=== PATIENT | female | born 1965 | race Caucasian/White ===

== ENCOUNTER → 2021-12-04 00:18 | Outpatient (CLI) | payer OTHER, SELFPAY ==
[2021-12-04 13:24] LABS: SARS-CoV-2 RNA PCR Negative
== END ==
PROVIDERS: PCP Physician Assistant; Visit Provider Internal Medicine Gastroenterology
DX: Z01.812 Encounter for preprocedural laboratory examination (principal); Z20.822 Contact with and (suspected) exposure to COVID-19
CPT/HCPCS: C9803; U0003; U0005

== ENCOUNTER 2021-12-08 00:29 | Day surgery (SDC) | payer OTHER, SELFPAY ==
[2021-11-30 13:06] VITALS: BMI 36.6
[2021-12-08 09:29] VITALS: BP 171/79; PULSE 69; RESP 20; TEMP 36.4; O2SAT 99
[2021-12-08] MEDS: LACTATED RINGERS 1,000 ML 150 ML IV CONT (09:38)
--- NOTE | 2021-12-08 09:38 | WPDANESEPPF ---
Anes - Initial Pre Proc Eval Procedure: Operation Date: 12/08/21 10:30 Proposed Procedures p Esophagogastroduodenoscopy - Clive Carlos MD Date/Time: 12/08/21 09:38 Surgeon: Clive Carlos MD Pre Op Diagnosis: dysphagia Patient Data Age: 56 Gender: F Height: 1.65 m Weight: 108.7 kg Last Vital Signs Temp 36.4 C 12/08/21 09:29 Pulse 69 12/08/21 09:29 Resp 20 12/08/21 09:29 BP 171/79 H 12/08/21 09:29 Pulse Ox 99 12/08/21 09:29 Allergies Allergy/AdvReac Type Severity Reaction Status Date / Time Penicillins Allergy Mild Rash Verified 12/08/21 09:40 Home Medications Medication Instructions Recorded Confirmed Type levothyroxine 88 mcg PO DAILY 11/30/21 11/30/21 History metoprolol succinate 25 mg PO DAILY 11/30/21 11/30/21 History rosuvastatin 5 mg PO DAILY 11/30/21 11/30/21 History valsartan-hydrochlorothiazide 320 tablet PO DAILY 11/30/21 11/30/21 History Patient hx anesthesia problems: none Family hx anesthesia problems: none Results Review: All pre-operative results and documents have been reviewed as part of the pre-operative evaluation. [facility] Past Medical History Medical History (Updated 12/08/21 @ 09:39 by Fausto Holland MD) GERD (gastroesophageal reflux disease) HTN (hypertension) Hyperlipidemia Hypothyroidism Morbid obesity Social History Social History Smoking status: Never smoker Alcohol intake: current Drinks per week: 1 Substance use: never Substance use type: does not use Living arrangements: with friend(s) Spiritual care concerns: No Anes - Eval Final PreProcedure Day of Procedure 12/08/21 09:38 Patient weight: morbidly obese Heart: regular rate and rhythm Lungs: clear to auscultation Airway: Mallampati scale class II Neurological: alert and oriented Last oral intake: >/= 8 hours ASA classification: III Emergent: no Anesthetic plan: proceed Anesthesia type and monitoring: general GIVS and standard monitoring Results Review: All pre-operative results and documents have been reviewed as part of the pre-operative evaluation. Informed Consent: The patient's anesthetic plan and its attendant risks and benefits were discussed with the patient/family/POA. Questions were solicited and answers provided to the satisfaction of the patient/family/POA.
--- NOTE | 2021-12-08 10:06 | PM.HPGS ---
History of Present Illness History of Present Illness Consent: Risks, benefits, and alternatives have been discussed and questions answered. Patient agrees to proceed with procedure. Chief complaint: dysphagia Narrative: Jodi Barakat is a 56 year old female with dysphagia, never had egd Review of Systems Constitutional: Constitutional: Denies headache(s) and Denies weakness Eyes: Eyes: Denies blurry vision ENT: Reports Normal hearing present, Denies headache(s) and Denies neck pain Cardiovascular: Cardiovascular: Denies chest pain and Denies dyspnea Respiratory: Respiratory: Denies dyspnea Gastrointestinal: Gastrointestinal: Reports no additional gastrointestinal complaints Genitourinary: Genitourinary: Denies dysuria Musculoskeletal: Musculoskeletal: Denies neck pain Integumentary/Breasts: Skin/Breast: Denies dry skin Neurologic: Reports Normal hearing present, Denies headache(s) and Denies weakness Psychiatric: Psychiatric: Denies anxiety Endocrine: Endocrine: Denies change in body appearance Hematologic/Lymphatic: Hematologic/Lymphatic: Denies easy bleeding Allergic/Immunologic: Allergic/Immunologic: Denies urticaria [facility] Past Medical History Medical History (Updated 12/08/21 @ 10:06 by Clive Carlos MD) Dysphagia GERD (gastroesophageal reflux disease) HTN (hypertension) Hyperlipidemia Hypothyroidism Morbid obesity Social History Social History Smoking status: Never smoker Alcohol intake: current Drinks per week: 1 Substance use: never Substance use type: does not use Living arrangements: with friend(s) Spiritual care concerns: No Meds Home Medications and Allergies Home Medications Medication Instructions Recorded Confirmed Type levothyroxine 88 mcg PO DAILY 11/30/21 11/30/21 History metoprolol succinate 25 mg PO DAILY 11/30/21 11/30/21 History rosuvastatin 5 mg PO DAILY 11/30/21 11/30/21 History valsartan-hydrochlorothiazide 320 tablet PO DAILY 11/30/21 11/30/21 History Allergies Allergy/AdvReac Type Severity Reaction Status Date / Time Penicillins Allergy Mild Rash Verified 12/08/21 09:40 Vital Signs Vital Signs - 24 hr 12/08/21 09:29 Temperature 97.6 F Pulse Rate 69 Respiratory Rate 20 Blood Pressure 171/79 H Pulse Oximetry 99 Exam Const: General: comfortable and no acute distress HENMT: General nose exam: Normal nares present Eyes: General: appearance normal, both eyes and all related structures Neck: Neck: no JVD Resp: Auscultation: clear to auscultation bilaterally Cardio: Rate: regular rate Rhythm: regular rhythm GI: Inspection: non-distended GI Palp: Yes Soft to palpation Skin: General skin exam: normal color Neuro: General: gait normal Speech: normal speech Extrem: General: normal to inspection Psych: Mental Status: mental status grossly normal Assessment and Plan Assessment and plan (1) Dysphagia: Code(s): R13.10 - Dysphagia, unspecified Status: Acute Assessment and Plan: egd with bx, dilation based on findings.
[2021-12-08 10:24] VITALS: BP 99/56; PULSE 71; RESP 26; O2SAT 95
[2021-12-08 10:34] VITALS: BP 105/57; PULSE 62; RESP 19; O2SAT 98
== END 2021-12-08 11:13 | disposition home or self-care (01) ==
PROVIDERS: PCP Physician Assistant; Visit Provider Internal Medicine Gastroenterology
PROC: 0DJ08ZZ Inspection of Upper Intestinal Tract, Via Natural or Artificial Opening Endoscopic (ICD-10-PCS; CPT 43235; principal; 2021-12-08 10:30)
DX: K22.2 Esophageal obstruction (principal); K21.00 Gastro-esophageal reflux disease with esophagitis, without bleeding; K44.9 Diaphragmatic hernia without obstruction or gangrene; K29.50 Unspecified chronic gastritis without bleeding; K22.10 Ulcer of esophagus without bleeding; I10 Essential (primary) hypertension; E78.5 Hyperlipidemia, unspecified; E03.9 Hypothyroidism, unspecified; E66.01 Morbid (severe) obesity due to excess calories; Z68.39 Body mass index [BMI] 39.0-39.9, adult
CPT/HCPCS: 43239; 43249; 88305; C1726; C9803; J2001; J2704; J7120; U0003; U0005

== ENCOUNTER 2022-04-08 01:11 | Day surgery (SDC) | payer OTHER, SELFPAY ==
[2022-03-29 14:38] VITALS: BMI 36.6
--- NOTE | 2022-04-07 15:33 | WPDANESEPPF ---
Anes - Initial Pre Proc Eval Procedure: Operation Date: 04/08/22 10:30 Proposed Procedures p Esophagogastroduodenoscopy - Clive Carlos MD <Amadou Garcia, DO - Last Filed: 04/07/22 15:35> Date/Time: 04/07/22 15:33 <Amadou Garcia, DO - Last Filed: 04/07/22 15:35> Surgeon: Clive Carlos MD <Amadou Garcia, DO - Last Filed: 04/07/22 15:35> Pre Op Diagnosis: gastritis, esophagitis <Amadou Garcia DO - Last Filed: 04/07/22 15:35> Patient Data Age: 57 Gender: F Height: 1.65 m Weight: 100 kg <Amadou Garcia DO - Last Filed: 04/07/22 15:35> Allergies Allergy/AdvReac Type Severity Reaction Status Date / Time Penicillins Allergy Mild Rash Verified 04/08/22 09:18 <Amadou Garcia DO - Last Filed: 04/07/22 15:35> Home Medications Medication Instructions Recorded Confirmed Type levothyroxine 88 mcg tablet 88 mcg PO DAILY 11/30/21 04/08/22 History metoprolol succinate 25 mg 25 mg PO DAILY 11/30/21 04/08/22 History tablet,extended release 24 hr rosuvastatin 5 mg tablet 5 mg PO DAILY 11/30/21 04/08/22 History valsartan 320 320 tablet PO DAILY 11/30/21 04/08/22 History mg-hydrochlorothiazide 25 mg tablet pantoprazole 40 mg tablet,delayed See Rx Instructions .Route 04/04/22 04/08/22 Rx release .COMPLEX #30 tabs <Amadou Garcia DO - Last Filed: 04/07/22 15:35> Patient hx anesthesia problems: none <Cassandra Snell CRNA - Last Filed: 04/08/22 09:59> Family hx anesthesia problems: none <Cassandra Snell CRNA - Last Filed: 04/08/22 09:59> Results Review: All pre-operative results and documents have been reviewed as part of the pre-operative evaluation. <Amadou Garcia DO - Last Filed: 04/07/22 15:35> [facility] Past Medical History Medical History: Medical History (Updated 04/08/22 @ 09:57 by Clive Carlos MD) Dysphagia GERD (gastroesophageal reflux disease) Hiatal hernia HTN (hypertension) Hyperlipidemia Hypothyroidism <Amadou Garcia DO - Last Filed: 04/07/22 15:35> Social History Social History: Social History Smoking status: Never smoker Alcohol intake: current Drinks per week: 1 Alcohol use details: very rare use, maybe once monthly Substance use: never Substance use type: does not use Living arrangements: with family Additional living arrangements comments: significant other x 20 years Spiritual care concerns: No <Amadou Garcia DO - Last Filed: 04/07/22 15:35> Anes - Eval Final PreProcedure Day of Procedure 04/07/22 15:33 <Amadou Garcia DO - Last Filed: 04/07/22 15:35> Patient weight: obese <Amadou Garcia DO - Last Filed: 04/07/22 15:35> Heart: regular rate and rhythm <Amadou Garcia DO - Last Filed: 04/07/22 15:35> Lungs: clear to auscultation <Amadou aGrcia DO - Last Filed: 04/07/22 15:35> Airway: Mallampati scale class II <Amadou Garcia DO - Last Filed: 04/07/22 15:35> Neurological: alert and oriented <Amadou Garcia DO - Last Filed: 04/07/22 15:35> Last oral intake: >/= 8 hours <mAadou Garcia DO - Last Filed: 04/07/22 15:35> ASA classification: III <Amadou Garcia DO - Last Filed: 04/07/22 15:35> Emergent: no <Amadou Garcia DO - Last Filed: 04/07/22 15:35> Anesthetic plan: proceed <Amadou Garcia DO - Last Filed: 04/07/22 15:35> Anesthesia type and monitoring: general GIVS and standard monitoring <Amadou Garcia DO - Last Filed: 04/07/22 15:35> Results Review: All pre-operative results and documents have been reviewed as part of the pre-operative evaluation. <Amadou Garcia DO - Last Filed: 04/07/22 15:35> Informed Consent: The patient's anes
[2022-04-08 09:19] VITALS: BP 152/92; PULSE 67; RESP 19; TEMP 36.3; O2SAT 100
[2022-04-08] MEDS: LACTATED RINGERS 1,000 ML 150 ML IV CONT (09:25)
--- NOTE | 2022-04-08 09:56 | PM.HPGS ---
History of Present Illness History of Present Illness Consent: Risks, benefits, and alternatives have been discussed and questions answered. Patient agrees to proceed with procedure. Chief complaint: gastritis, esophagitis Narrative: Jodi Barakat is a 57 year old female with reflux esophagitis and non-obstructive ring that was dilated up to 18mm doing much better now with pantoprazole daily, no more dysphagia. Review of Systems Constitutional: Constitutional: Denies headache(s) and Denies weakness Eyes: Eyes: Denies blurry vision ENT: Reports Normal hearing present, Denies headache(s) and Denies neck pain Cardiovascular: Cardiovascular: Denies chest pain and Denies dyspnea Respiratory: Respiratory: Denies dyspnea Gastrointestinal: Gastrointestinal: Reports no additional gastrointestinal complaints Genitourinary: Genitourinary: Denies dysuria Musculoskeletal: Musculoskeletal: Denies neck pain Integumentary/Breasts: Skin/Breast: Denies dry skin Neurologic: Reports Normal hearing present, Denies headache(s) and Denies weakness Psychiatric: Psychiatric: Denies anxiety Endocrine: Endocrine: Denies change in body appearance Hematologic/Lymphatic: Hematologic/Lymphatic: Denies easy bleeding Allergic/Immunologic: Allergic/Immunologic: Denies urticaria [facility] Past Medical History Medical History (Updated 04/08/22 @ 09:57 by Clive Carlos MD) Dysphagia GERD (gastroesophageal reflux disease) Hiatal hernia HTN (hypertension) Hyperlipidemia Hypothyroidism Social History Social History Smoking status: Never smoker Alcohol intake: current Drinks per week: 1 Alcohol use details: very rare use, maybe once monthly Substance use: never Substance use type: does not use Living arrangements: with family Additional living arrangements comments: significant other x 20 years Spiritual care concerns: No Meds Home Medications and Allergies Home Medications Medication Instructions Recorded Confirmed Type levothyroxine 88 mcg tablet 88 mcg PO DAILY 11/30/21 04/08/22 History metoprolol succinate 25 mg 25 mg PO DAILY 11/30/21 04/08/22 History tablet,extended release 24 hr rosuvastatin 5 mg tablet 5 mg PO DAILY 11/30/21 04/08/22 History valsartan 320 320 tablet PO DAILY 11/30/21 04/08/22 History mg-hydrochlorothiazide 25 mg tablet pantoprazole 40 mg tablet,delayed See Rx Instructions .Route 04/04/22 04/08/22 Rx release .COMPLEX #30 tabs Allergies Allergy/AdvReac Type Severity Reaction Status Date / Time Penicillins Allergy Mild Rash Verified 04/08/22 09:18 Vital Signs Vital Signs - 24 hr 04/08/22 09:19 Temperature 97.4 F L Pulse Rate 67 Respiratory Rate 19 Blood Pressure 152/92 H Pulse Oximetry 100 Oxygen Delivery Room Air Exam Const: General: comfortable and no acute distress HENMT: General nose exam: Normal nares present Eyes: General: appearance normal, both eyes and all related structures Neck: Neck: no JVD Resp: Auscultation: clear to auscultation bilaterally Cardio: Rate: regular rate Rhythm: regular rhythm GI: Inspection: non-distended GI Palp: Yes Soft to palpation Skin: General skin exam: normal color Neuro: General: gait normal Speech: normal speech Extrem: General: normal to inspection Psych: Mental Status: mental status grossly normal Assessment and Plan Assessment and plan (1) GERD (gastroesophageal reflux disease): Code(s): K21.9 - Gastro-esophageal reflux disease without esophagitis Status: Acute Assessment and Plan: erosive esophagitis doing much better with ppi, denies any more dysphagia egd to assess healing (2) Dysphagia: Code(s): R13.10 - Dysphagia, unspecified Status: Acute
[2022-04-08 10:15] VITALS: BP 127/74; PULSE 64; RESP 20; O2SAT 100
[2022-04-08 10:25] VITALS: BP 131/81; PULSE 60; RESP 16; O2SAT 98
[2022-04-08 10:35] VITALS: BP 159/82; PULSE 64; RESP 20; O2SAT 97
== END 2022-04-08 10:40 | disposition home or self-care (01) ==
PROVIDERS: PCP Physician Assistant; Visit Provider Internal Medicine Gastroenterology
PROC: 0DJ08ZZ Inspection of Upper Intestinal Tract, Via Natural or Artificial Opening Endoscopic (ICD-10-PCS; CPT 43235; principal; 2022-04-08 10:30)
DX: K21.00 Gastro-esophageal reflux disease with esophagitis, without bleeding (principal); R13.10 Dysphagia, unspecified; K44.9 Diaphragmatic hernia without obstruction or gangrene; K29.70 Gastritis, unspecified, without bleeding; I10 Essential (primary) hypertension; E78.5 Hyperlipidemia, unspecified; E03.9 Hypothyroidism, unspecified
CPT/HCPCS: 43235; J2704; J7120

== ENCOUNTER 2025-05-01 02:55 | Day surgery (SDC) | payer OTHER, SELFPAY ==
[2025-04-16 12:28] VITALS: BMI 34.8
--- OUTSIDE RECORDS SUMMARY | 2025-05-01 02:58 | XMS_ITS | Continuity of Care Document ---
Author Organization [facility] Address [address] [facility] [place] [address] Phone Care Team Providers Care Lunchroom Mother Name Role Phone Mathew Hinojosa MD Unavailable Unavailable Allergies, Adverse Reactions, Alerts Substance Reaction Status Criticality penicillin G Active No Information Medications Medication Instructions Dosage Effective Dates (start - stop) Status Comments Synthroid 50 mcg tablet take 1 tablet by oral route every day 50 MCG - Active Diovan HCT 320 mg-25 mg tablet take 1 tablet by oral route every day 1.00 tablet - Active Procedures Procedure Date OFFICE/OUTPATIENT VISIT, EST PREV VISIT, EST, AGE 40-64 OFFICE/OUTPATIENT VISIT, EST OFFICE/OUTPATIENT VISIT, EST OFFICE/OUTPATIENT VISIT, EST PREV VISIT, EST, AGE 40-64 OFFICE/OUTPATIENT VISIT, EST PREV VISIT, EST, AGE 40-64 OFFICE/OUTPATIENT VISIT, EST OFFICE/OUTPATIENT VISIT, EST OFFICE/OUTPATIENT VISIT, EST OFFICE/OUTPATIENT VISIT, EST PREV VISIT, EST, AGE 40-64 OFFICE/OUTPATIENT VISIT, EST Advance Directives Directive Yes / No Effective Date File Name No Information Encounters Encounter Description Practice Location Reason(s) For Visit Diagnoses Date Provider Providers Copied on Encounter [facility], [address] [facility] [place], [id number], [place] tel:[phone] [facility] No Information 8 Ashish Carmona. [address], [place], [place], [address] , [place]. tel:[phone] OFFICE/OUTPA TIENT VISIT, EST [facility], [address], [place], [place], [address], [place] [phone] [facility] HLP (chief complaint) HTN (chief complaint) thyroid (chief complaint) HypothyroidismEssen tial (primary) hypertensionHyperli pidemia 8 Ashish Carmona. [address], [place], [place], [address] , [place]. tel:[phone] PREV VISIT, EST, AGE 40-64 [facility], [address], [place], [place], [address], [place] [phone] [facility] PHysical (chief complaint) Encounter for general adult medical exam w abnormal findingsHypothyroid ismEssential (primary) hypertensionHyperli pidemia 7 Ashish Carmona. [address], [place], [place], [address] , [place]. [phone] Referring Provider: Dena Taylor [address], [place], [place], [address]. tel:[phone] OFFICE/OUTPA TIENT VISIT, EST [facility], [address], [place], [place], [address], [place] [phone] [facility] Medicine Fatigue1 (chief complaint) HTN (chief complaint) hypothyroi dism (chief complaint) Essential (primary) hypertensionFatigue Hypothyroidism 7 Ashish Carmona. [address], [address], [place], [place], [address] , [place]. tel:[phone] Referring Provider: Dena Taylor [address], [place], [place], [address]. tel:[phone] OFFICE/OUTPA TIENT VISIT, EST [facility], [address], [place], [place], [address], [place] tel:[phone] [facility] HTN (chief complaint) HLP (chief complaint) thyroid (chief complaint) low D (chief complaint) Essential (primary) hypertensionHypothy roidismHyperlipidem iaFatigue 6 Ashish Toney [address], [place], [place], [address] , [place]. [phone] Referring Provider: Dena Taylor [address], [place], [place], [address]. tel:[phone] PREV VISIT, EST, AGE 40-64 [facility], [address], [place], [place], [address], [place] [phone] [facility] Medicine PHysical (chief complaint) Encounter for general adult medical exam w abnormal findingsEssential (primary) hypertensionAbnorma l weight gain 6 Ashish Toney [address], [place], [place], [address] , [place]. tel:[phone] Referring Provider: Dena Taylor [address], [place], [place], [address]. tel:[phone] PREV VISIT, EST, AGE 40-64 [facility], [address], [place], [place], [address], [place] [phone] [facility] Physical (chief complaint) ROUTINE MEDICAL EXAMDietary surveillance and counselingUnspecifi ed essential hypertensionSeborrh eic dermatitisBMI 35.0 to 35.9 5 Ashish Toney [address], [place], [place], [address] , [place]. [phone] Referring Provider: Dena Taylor [address], [place], [place], [address]. tel:[phone] OFFICE/OUTPA TIENT VISIT, EST [facility], [address], [place], [place], [address], [place] [phone] [facility] Medicine HTN (chief complaint) skin infection (chief complaint) Dietary surveillance and counselingHypertens ion, UnspecifiedCellulit is 4 Hinojosa Mathew. [address], [place], [place], [address] , [place]. tel:[phone] Referring Provider: Dena Taylor [address], [place], [place], [address]. tel:[phone] OFFICE/OUTPA TIENT VISIT, [facility], [address], [place], [place], [address], [place] [phone] [facility] HTN (chief complaint) insect bite (chief complaint) Hypertension, UnspecifiedInsect bite, nonvenomous of trunk, without mention of infectionCellulitis 4 Ashish Toney [address], [place], [place], [address] , [place]. tel:[phone] Referring Provider: Dena Taylor [address], [place], [place], [address]. tel:[phone] OFFICE/OUTPA TIENT VISIT, [facility], [address], [place], [place], [address], [place] tel:[phone] [facility] HTN (chief complaint) HLP (chief complaint) Vitamin D (chief complaint) Dietary surveillance and counselingConjuncti darrin hemorrhageOther and unspecified hyperlipidemiaHyper tension, UnspecifiedUnspecif ied vitamin d deficiency 4 Ashish Toney [address], [place], [place], [address] , [place]. tel:[phone] Referring Provider: Dena Taylor [address], [place], [place], [address]. tel:[phone] PREV VISIT, EST, AGE 40-64 [facility], [address], [place], [place], [address], [place] tel:[phone] [facility] Physical (chief complaint) Dietary surveillance and counselingRoutine Medical ExamHypertension, UnspecifiedConjunct ival hemorrhageRoutine Medical Exam 4 Ashish Toney [address], [place], [place], [address] , [place]. tel:[phone] Family History Family Member Type Diagnosis Age At Onset Brother Problem (finding) Hypertension Mother Problem (finding) Hypertension Father Problem (finding) Hypertension Father Problem (finding) Coronary artery disease Payers Payer name Insurance type Covered alliance party ID Authoriza tion(s) No Information Social History Type Description Quantity Date Captured Comments Sex Female Smoking Status No Information Chief Complaint And Reason For Visit No Information Plan Of Treatment Date Type Action Status Goal Pap/HPV testing. Due on due Goal Colonoscopy. Due on 018 due Goal Sigmoidoscopy. Due on due Goal Influenza vaccine. Due on due Goal Td vaccine. Due on 18 due Goal Depression screening. Due on due Goal Tdap. Due on due Goal FOBT. Due on due Goal Influenza vaccine. Due on due Goal FOBT. Due on due Goal Td vaccine. Due on 17 due Goal Pap/HPV testing. Due on due Goal Sigmoidoscopy. Due on due Goal Colonoscopy. Due on 017 due Goal Depression screening. Due on due Goal Tdap. Due on due Goal Pap/HPV testing. Due on due Goal Td vaccine. Due on 17 due Goal FOBT. Due on due Goal Depression screening. Due on due Goal Tdap. Due on due Goal Sigmoidoscopy. Due on due Goal Colonoscopy. Due on 017 due Goal Influenza vaccine. Due on due Goal Pap/HPV testing. Due on due Goal FOBT. Due on due Goal Colonoscopy. Due on 016 due Goal Depression screening. Due on due Goal Sigmoidoscopy. Due on due Goal Tdap. Due on due Goal Influenza vaccine. Due on due Goal Td vaccine. Due on 16 due Goal Depression screening. Due on due Goal FOBT. Due on due Goal Sigmoidoscopy. Due on due Goal Td vaccine. Due on 16 due Goal Colonoscopy. Due on 016 due Goal Tdap. Due on due Goal Influenza vaccine. Due on due Goal Pap/HPV testing. Due on due Goal Depression screening. Due on due Goal Pap/HPV testing. Due on due Goal Td vaccine. Due on 15 due Goal Tdap. Due on due Goal Mammogram. Due on 4 due Referral Ordered: US THYROID ordered Referral Ordered: Pulmonology (related to Fatigue) ordered Referral Ordered: Referrals: Pulmonology. Evaluate and treat ordered Referral Ordered: MAMMOGRAM, SCREENING ordered History Of Present Illness Encounter Date Complaint History Of Prese nt Illness thyroid Pt has low thyro id. Pt had thyroid ultrasound done which showed ria disease. Pt takes synthroid and her tsh is ok. pt denies any weight gain or fatigue HLP Pt has HLP. pt i s trying low fat and low carb diet HTN Pt has HTN. Pt r un out of ddiovan.hctz. her BP is high today. Pt denies any chest pain or headache PHysical PT needs annual physical. Pt has hypothyroidism. Pt is noncompliant. Pt stopped taking synthroid and also she has not done the thyroid ultrasound. Pt has HTN. pt takes diovan.hcz and her BP is still bordelrine high ,Pt denies any chest pian or headache. pt has HLP. Pt has not been diet and exercising. Pt denies any other complaints hypothyroidism Pt has not notic ed much difference with synthroid meds. HTN Pt has HTN. Pt t akes diovan.hctz and her bp is high today. Pt denies any headache. Pt states that her BP is around 140 at home two weeks ago Fatigue1 Pt has chronic f atigue and she feels sleepy all the time. Pt does work a lot of hours. Pt also snores at night. Pt has very interruppted sleep. Pt denies any chest pain or SOB. Pt is noncompliant with sleep study low D Pt has low D. thyroid Pt has low thyro id also. Pt feels fatigue. Pt had negative sleep study 5 years. Pt does snore. Pt feels fatigue in the morning HLP Pt has mildly hi gh cholesterol. Pt is no on any diet HTN Pt is on diovan/ HCTZ and her BP is stable. Pt denies any chest pain, hadache PHysical Pt needs annual physical. Pt takes losaratn.hctz and she stopped norvasc on her own due to ankle swelling. Pt states that her ankle no longer swells without norvasx. her BP is borderline. Pt also is noncompliant with lab work and mammogram. Pt otherwise feels fine. Pt denies any other complaints Physical Pt needs annual physical. Pt has HTN. Pt denies any chest pain or headache. Pt has not had BP checked for a while at home. Pt takes losartan/HCTZ and norvasc. Pt has gained sevearl pounds and feels overall bloated. Pt notices dry and flaky feeling around upper eye lid area and along hairline for 4 weeks. Pt notices mild itching. Pt denies any dandruff and alopecia. Pt states that sometimes upper eyelid turns red. Pt denies any other complaints Instructions Date Instruction Additional Infor mation Increase physical activity Relat ed to Hypothyroidism Weight management Related to Hyp othyroidism Prescribed Activity and Exercise Education Related to Dietary Surveillance and Counseling Prescribed Diet Educ ation/Lifestyle Education Regarding Diet Related to Dietary Surveillance and Counseling Weight management Related to Enc ounter for general adult medical exam w abnormal findings Increase physical activity Relat ed to Encounter for general adult medical exam w abnormal findings Prescribed Diet Educ ation/Lifestyle Education Regarding Diet Related to Dietary Surveillance and Counseling Prescribed Activity and Exercise Education Related to Dietary Surveillance and Counseling Prescribed Activity and Exercise Education Related to Dietary Surveillance and Counseling Prescribed Diet Educ ation/Lifestyle Education Regarding Diet Related to Dietary Surveillance and Counseling Prescribed Diet Educ ation/Lifestyle Education Regarding Diet Related to Dietary Surveillance and Counseling Prescribed Activity and Exercise Education Related to Dietary Surveillance and Counseling Prescribed Activity and Exercise Education Related to Dietary Surveillance and Counseling Prescribed Diet Educ ation/Lifestyle Education Regarding Diet Related to Dietary Surveillance and Counseling Prescribed Activity and Exercise Education Related to Dietary Surveillance and Counseling Prescribed Diet Educ ation/Lifestyle Education Regarding Diet Related to Dietary Surveillance and Counseling Dietary counseling Related to Di etary surveillance counseling Decrease caloric intake Related to Dietary surveillance counseling Dietary counseling Related to Di etary surveillance counseling Decrease caloric intake Related to Dietary surveillance counseling Decrease caloric intake Related to Dietary surveillance counseling Dietary counseling Related to Di etary surveillance counseling Assessments Type Assessment Date No Information
[2025-05-01 13:13] VITALS: BP 180/89; PULSE 65; RESP 18; TEMP 34.1; O2SAT 100
[2025-05-01] MEDS: LACTATED RINGERS 1,000 ML 150 ML IV CONT (13:20)
--- NOTE | 2025-05-01 13:51 | P.HP_ITS ---
H&P: HPI History of Present Illness Date/Time: 05/01/25 13:51 Chief Complaint: Positive Cologuard test Narrative: This is the patient's first colonoscopy. she recently had a Cologuard positive test. There are no GI symptoms and there is no family history of colorectal cancer. Review of Systems Review of Systems: All systems reviewed & are unremarkable except as noted in HPI and below PMFSH Past Medical History Medical History (Updated 05/01/25 @ 13:52 by Dorian Carver MD) Hiatal hernia Dysphagia GERD (gastroesophageal reflux disease) Hypothyroidism Hyperlipidemia HTN (hypertension) Social History Social History Smoking status: Former smoker Alcohol intake: current Drinks per week: 2 Alcohol use details: very rare use, maybe once monthly Substance use: never Substance use type: does not use Living arrangements: with family Additional living arrangements comments: significant other x 20 years Spiritual care concerns: No Meds Home Medications and Allergies Home Medications ?Medication ?Instructions ?Recorded ?Confirmed ?Type levothyroxine 88 mcg tablet 88 mcg PO DAILY 11/30/21 05/01/25 History metoprolol succinate 25 mg 25 mg PO DAILY 11/30/21 05/01/25 History tablet,extended release 24 hr rosuvastatin 5 mg tablet 5 mg PO DAILY 11/30/21 05/01/25 History valsartan 320 320 tablet PO DAILY 11/30/21 05/01/25 History mg-hydrochlorothiazide 25 mg tablet pantoprazole 40 mg tablet,delayed 40 mg PO DAILY #90 tabs 03/27/23 05/01/25 Rx release Allergies Allergy/AdvReac Type Severity Reaction Status Date / Time Penicillins Allergy Mild Rash Verified 05/01/25 13:10 Vital Signs Vital Signs - 24 hr 05/01/25 13:13 Temperature 93.3 F L Pulse Rate 65 Respiratory Rate 18 Blood Pressure 180/89 H Pulse Oximetry 100 Oxygen Delivery Room Air Exam Const: General: cooperative and healthy appearing Resp: Effort & Inspection: normal respiratory effort and able to speak in complete sentences Auscultation: clear to auscultation bilaterally Cardio: Rate: regular rate Rhythm: regular rhythm GI: Inspection: normal to inspection GI Palp: No No hepatosplenomegaly present Auscultation: normal bowel sounds Rectal Exam: deferred Skin: General skin exam: normal color Psych: Appearance: grossly normal Mental Status: mental status grossly norm al Assessment and Plan Assessment and plan (1) Positive colorectal cancer screening using Cologuard test: Code(s): R19.5 - Other fecal abnormalities Status: Acute Assessment and Plan: The patient is deemed a good candidate for the procedure. Consent signed. Will proceed.
--- NOTE | 2025-05-01 13:57 | WPDANESEPPF ---
Anes - Initial Pre Proc Eval Procedure: Operation Date: 05/01/25 14:30 Proposed Procedures p Diagnostic Colonoscopy - Dorian Carver MD Date/Time: 05/01/25 13:57 Surgeon: Dorian Carver MD Pre Op Diagnosis: Other fecal abnormalities Patient Data Age: 60 Gender: F Height: 1.65 m Weight: 93.3 kg Last Vital Signs Temp 34.1 C L 05/01/25 13:13 Pulse 65 05/01/25 13:13 Resp 18 05/01/25 13:13 BP 180/89 H 05/01/25 13:13 Pulse Ox 100 05/01/25 13:13 O2 Del Method Room Air 05/01/25 13:13 Allergies Allergy/AdvReac Type Severity Reaction Status Date / Time Penicillins Allergy Mild Rash Verified 05/01/25 13:10 Home Medications ?Medication ?Instructions ?Recorded ?Confirmed ?Type levothyroxine 88 mcg tablet 88 mcg PO DAILY 11/30/21 05/01/25 History metoprolol succinate 25 mg 25 mg PO DAILY 11/30/21 05/01/25 History tablet,extended release 24 hr rosuvastatin 5 mg tablet 5 mg PO DAILY 11/30/21 05/01/25 History valsartan 320 320 tablet PO DAILY 11/30/21 05/01/25 History mg-hydrochlorothiazide 25 mg tablet pantoprazole 40 mg tablet,delayed 40 mg PO DAILY #90 tabs 03/27/23 05/01/25 Rx release Patient hx anesthesia problems: none Family hx anesthesia problems: none Results Review: All pre-operative results and documents have been reviewed as part of the pre-operative evaluation. [facility] Past Medical History Medical History Hiatal hernia Dysphagia GERD (gastroesophageal reflux disease) Hypothyroidism Hyperlipidemia HTN (hypertension) Social History Social History Smoking status: Former smoker Alcohol intake: current Drinks per week: 2 Alcohol use details: very rare use, maybe once monthly Substance use: never Substance use type: does not use Living arrangements: with family Additional living arrangements comments: significant other x 20 years Spiritual care concerns: No Anes - Eval Final PreProcedure Day of Procedure 05/01/25 13:57 Patient weight: obese Heart: regular rate and rhythm Lungs: clear to auscultation Airway: Mallampati scale class II Neurological: alert and oriented Last oral intake: >/= 8 hours ASA classification: II Emergent: no Anesthetic plan: proceed Anesthesia type and monitoring: general GIVS and standard monitoring Results Review: All pre-operative results and documents have been reviewed as part of the pre-operative evaluation. Informed Consent: The patient's anesthetic plan and its attendant risks and benefits were discussed with the patient/family/POA. Questions were solicited and answers provided to the satisfaction of the patient/family/POA.
[2025-05-01 14:23] VITALS: BP 115/67; PULSE 55; RESP 22; O2SAT 100
[2025-05-01 14:33] VITALS: BP 110/64; PULSE 57; RESP 20; O2SAT 100
[2025-05-01 14:43] VITALS: BP 109/90; PULSE 56; RESP 25; O2SAT 100
== END 2025-05-01 14:50 | disposition home or self-care (01) ==
PROVIDERS: PCP Physician Assistant; Referring Provider Physician Assistant; Visit Provider Internal Medicine Gastroenterology
PROC: 0DJD8ZZ Inspection of Lower Intestinal Tract, Via Natural or Artificial Opening Endoscopic (ICD-10-PCS; CPT 45378; principal; 2025-05-01 14:30)
DX: R19.5 Other fecal abnormalities (principal); K57.30 Diverticulosis of large intestine without perforation or abscess without bleeding; K64.8 Other hemorrhoids; Z87.891 Personal history of nicotine dependence; E66.9 Obesity, unspecified; Z68.34 Body mass index [BMI] 34.0-34.9, adult
CPT/HCPCS: 45378; J2003; J2704; J7120